=== PATIENT | male | born 1940 | race Caucasian/White ===

== ENCOUNTER 2019-11-13 18:05 | Outpatient (CLI) | payer MEDICARE, SELFPAY ==
[2019-11-13 19:01] LABS: Alanine Aminotransferase 11 U/L (0-41); Albumin Level 3.1 g/dL (3.5-5.2); Alkaline Phosphatase 87 IU/L (40-130); Anion Gap 13.6 (5-19); Aspartate Amino Transferase 21 U/L (0-40); Blood Urea Nitrogen 19 mg/dL (8-23); Carbon Dioxide 27 mmol/L (22-29); Chloride 99 mmol/L (98-107); Globulin 3.6 g/dL (1.3-4.6); Glucose 241 mg/dL (65-115); Osmolality Calculated 284 mOsm/kg (285-295); Potassium 4.6 mmol/L (3.5-5.1); Sodium 135 mmol/L (136-145); Total Bilirubin 1.1 mg/dL (0.15-1.2); Total Protein 6.7 g/dL (6.6-8.7)
== END 2019-11-13 18:06 | disposition home or self-care (01) ==
LOC: LAB 18:08
PROVIDERS: Family Provider Nurse Practitioner Family; Visit Provider Internal Medicine Gastroenterology
DX: K75.4 Autoimmune hepatitis (principal); K74.60 Unspecified cirrhosis of liver
CPT/HCPCS: 80053

== ENCOUNTER → 2022-12-24 10:55 | Day surgery (SDC) | payer MEDICARE, SELFPAY ==
[2022-12-23 10:20] VITALS: BMI 31.3
[2022-12-24 11:10] VITALS: BP 150/79; PULSE 98; RESP 20; TEMP 37; O2SAT 95
--- NOTE | 2022-12-24 11:27 | US_ITS ---
WS: [email or web address] ULTRASOUND-GUIDED PARACENTESIS CLINICAL INFORMATION: paracentises COMPARISON: None. Procedure Informed consent: The risks, benefits, and alternatives of the procedure were discussed with the van ent. Verbal and written consent was obtained. Timeout: A timeout was performed to confirm the correct patient, procedure, and site. Preparation: A suitable skin site was identified. The patient was prepped and draped in usual sterile fashion. Lidocaine 1% was used for local anesthesia. Catheter: 4 [place] One-step Yueh catheter. Side: LEFT lower quadrant. Fluid Volume: 7300 ml Color: Clear yellow DISPOSITION: Discarded safely. Complications: None. Patient disposition: Discharged from the department in stable condition. IMPRESSION: Uncomplicated ultrasound-guided paracentesis. Removal of 7300 cc
[2022-12-24] MEDS: albumin 25 G/100 ML BAG 60 G IV (12:22)
== END ==
PROVIDERS: Radiology Neuroradiology; Family Provider Nurse Practitioner Family; Visit Provider Registered Nurse
PROC: (CPT 49082; principal; 2022-12-24 12:30)
DX: K74.60 Unspecified cirrhosis of liver (principal)
CPT/HCPCS: 49083; 96365; P9046

== ENCOUNTER 2023-01-13 10:03 | Day surgery (SDC) | payer MEDICARE, SELFPAY ==
[2023-01-13 10:18] VITALS: BP 144/78; PULSE 84; RESP 16; TEMP 36.6; O2SAT 100
--- NOTE | 2023-01-13 10:42 | US_ITS ---
WS: [id number] ULTRASOUND-GUIDED THERAPEUTIC PARACENTESIS Procedure, risks, and complications have been explained to the patient. Consent is obtained. Utilizing aseptic technique and 1% buffered lidocaine, a small dermatome was made through which a 5 F rench Yueh catheter was inserted. Approximately 6900 ml of light yellow peritoneal fluid was obtained without difficulty. No complications encountered. IMPRESSION: Uncomplicated paracentesis yielding 6900 ml of peritoneal fluid.
[2023-01-13] MEDS: albumin 50 G/200 ML BAG 60 G IV (12:05)
== END 2023-01-13 12:45 | disposition home or self-care (01) ==
LOC: GILAB 10:04
PROVIDERS: Radiology Diagnostic Radiology; Visit Provider Registered Nurse
PROC: (CPT 49082; principal; 2023-01-13 11:00)
DX: R18.8 Other ascites (principal)
CPT/HCPCS: 49083; P9046

== ENCOUNTER 2023-01-25 09:49 | Day surgery (SDC) | payer MEDICARE, SELFPAY ==
[2023-01-25 10:03] VITALS: BP 141/70; PULSE 84; RESP 16; TEMP 36.5; O2SAT 96
--- NOTE | 2023-01-25 10:03 | US_ITS ---
WS: [email or web address] ULTRASOUND-GUIDED THERAPEUTIC PARACENTESIS Procedure, risks, and complications have been explained to the patient. Consent is obtained. Utilizing aseptic technique and 1% buffered lidocaine, a small dermatome was made through which a 5 F rench Yueh catheter was inserted. Approximately 3500 ml of clear peritoneal fluid was obtained witho ut difficulty. No complications encountered. IMPRESSION: Uncomplicated paracentesis yielding 3500 ml of peritoneal fluid.
[2023-01-25] MEDS: albumin 25 G/100 ML BAG 60 G IV (11:00)
== END 2023-01-25 11:36 | disposition home or self-care (01) ==
LOC: GILAB 09:50
PROVIDERS: Radiology Diagnostic Radiology; PCP Registered Nurse; Visit Provider Registered Nurse
PROC: (CPT 49082; principal; 2023-01-25 10:00)
DX: K74.60 Unspecified cirrhosis of liver (principal); R18.8 Other ascites
CPT/HCPCS: 49083; 96365; P9046

== ENCOUNTER 2023-02-01 08:53 | Day surgery (SDC) | payer MEDICARE, SELFPAY ==
--- NOTE | 2023-02-01 09:04 | US_ITS ---
WS: [email or web address] ULTRASOUND-GUIDED PARACENTESIS CLINICAL INFORMATION: Cirrhosis of liver with ascites COMPARISON: 01/25/2023 FINDINGS: Four-quadrant ultrasound performed. Insufficient fluid to safely perform paracentesis today. IMPRESSION: Insufficient fluid for paracentesis
[2023-02-01 09:09] VITALS: BP 143/81; PULSE 82; RESP 18; TEMP 36.2; O2SAT 98
== END 2023-02-01 09:52 | disposition home or self-care (01) ==
LOC: GILAB 08:53
PROVIDERS: Radiology Neuroradiology; PCP Registered Nurse; Visit Provider Registered Nurse
DX: K74.60 Unspecified cirrhosis of liver (principal); R18.8 Other ascites
CPT/HCPCS: 49083; 76705

== ENCOUNTER → 2023-02-08 10:00 | Day surgery (SDC) | payer MEDICARE, SELFPAY ==
[2023-02-08 09:01] VITALS: BP 149/65; PULSE 79; RESP 18; TEMP 36.1; O2SAT 100
--- NOTE | 2023-02-08 09:08 | US_ITS ---
WS: [email or web address] Abdominal ultrasound, limited. History: Evaluate for ascites. Comparison: None. All 4 quadrants are imaged by ultrasound to evaluate for ascites. Small amount of peritoneal fluid in all 4 quadrants. Insufficient for paracentesis. IMPRESSION: Small amount of ascites. Insufficient for paracentesis.
== END ==
PROVIDERS: Radiology Diagnostic Radiology; PCP Registered Nurse; Visit Provider Registered Nurse
DX: R18.8 Other ascites (principal)
CPT/HCPCS: 76705

== ENCOUNTER 2023-03-01 08:50 | Day surgery (SDC) | payer MEDICARE, SELFPAY ==
--- NOTE | 2023-03-01 08:58 | US_ITS ---
WS: [email or web address] ULTRASOUND-GUIDED PARACENTESIS CLINICAL INFORMATION: CIRRHOSIS OF LIVER WITH ASCITES COMPARISON: None. Procedure Informed consent: The risks, benefits, and alternatives of the procedure were discussed with the van ent. Verbal and written consent was obtained. Timeout: A timeout was performed to confirm the correct patient, procedure, and site. Preparation: A suitable skin site was identified. The patient was prepped and draped in usual sterile fashion. Lidocaine 1% was used for local anesthesia. Catheter: 4 [place] One[employer]step [employer] catheter. Side: LEFT lower quadrant. Fluid Volume: 7700 ml Color: Clear yellow DISPOSITION: Discarded safely. Complications: None. Patient disposition: Discharged from the department in stable condition. IMPRESSION: Uncomplicated ultrasound-guided paracentesis. Removal of 7700 cc
[2023-03-01 09:03] VITALS: BP 163/70; PULSE 84; RESP 18; TEMP 36.4; O2SAT 97
[2023-03-01] MEDS: albumin 25 G/100 ML BAG 60 G IV ×2 (10:20→10:42)
== END 2023-03-01 11:05 | disposition home or self-care (01) ==
LOC: GILAB 08:51
PROVIDERS: Radiology Neuroradiology; PCP Registered Nurse; Visit Provider Registered Nurse
PROC: (CPT 49082; principal; 2023-03-01 10:00)
DX: K74.60 Unspecified cirrhosis of liver (principal); R18.8 Other ascites
CPT/HCPCS: 49083; P9046

== ENCOUNTER 2023-03-15 09:04 | Day surgery (SDC) | payer MEDICARE, SELFPAY ==
--- NOTE | 2023-03-15 09:05 | US_ITS ---
WS: [email or web address] ULTRASOUND-GUIDED PARACENTESIS CLINICAL INFORMATION: cirrhosis of liver with ascites COMPARISON: None. Procedure Informed consent: The risks, benefits, and alternatives of the procedure were discussed with the van ent. Verbal and written consent was obtained. Timeout: A timeout was performed to confirm the correct patient, procedure, and site. Preparation: A suitable skin site was identified. The patient was prepped and draped in usual sterile fashion. Lidocaine 1% was used for local anesthesia. Catheter: 4 [place] One-step Yueh catheter. Side: LEFT lower quadrant. Fluid Volume: 8000 ml Color: Clear yellow DISPOSITION: Discarded safely. Complications: None. Patient disposition: Discharged from the department in stable condition. IMPRESSION: Uncomplicated ultrasound-guided paracentesis. Removal of 8000 cc
[2023-03-15 09:11] VITALS: BP 105/62; PULSE 88; RESP 16; TEMP 36.1; O2SAT 96; BMI 30.4
[2023-03-15] MEDS: albumin 50 G/200 ML VIAL IV (10:09)
== END 2023-03-15 10:54 | disposition home or self-care (01) ==
LOC: GILAB 09:05
PROVIDERS: Radiology Neuroradiology; PCP Registered Nurse; Visit Provider Family Medicine
PROC: (CPT 49082; principal; 2023-03-15 10:00)
DX: K74.60 Unspecified cirrhosis of liver (principal); R18.8 Other ascites
CPT/HCPCS: 49083; P9047

== ENCOUNTER 2023-03-24 09:45 | Day surgery (SDC) | payer MEDICARE, SELFPAY ==
--- NOTE | 2023-03-24 09:51 | US_ITS ---
WS: [email or web address] ULTRASOUND-GUIDED THERAPEUTIC PARACENTESIS Procedure, risks, and complications have been explained to the patient. Consent is obtained. Utilizing aseptic technique and 1% buffered lidocaine, a small dermatome was made through which a 5 F rench Yueh catheter was inserted. Approximately 8000 ml of clear peritoneal fluid was obtained witho ut difficulty. No complications encountered. IMPRESSION: Uncomplicated paracentesis yielding 8000 ml of peritoneal fluid.
[2023-03-24 10:06] VITALS: BP 133/71; PULSE 84; RESP 16; TEMP 36.6; O2SAT 98; BMI 28.8
[2023-03-24] MEDS: albumin 50 G/200 ML BAG 60 G IV (10:56)
== END 2023-03-24 12:02 | disposition home or self-care (01) ==
PROVIDERS: Radiology Diagnostic Radiology; PCP Registered Nurse; Visit Provider Registered Nurse
PROC: (CPT 49082; principal; 2023-03-24 11:00)
DX: K74.60 Unspecified cirrhosis of liver (principal); R18.8 Other ascites
CPT/HCPCS: 49083; 96365; P9046

== ENCOUNTER 2023-03-29 08:47 | Day surgery (SDC) | payer MEDICARE, SELFPAY ==
--- NOTE | 2023-03-29 08:58 | US_ITS ---
WS: [email or web address] ULTRASOUND-GUIDED 6000 PARACENTESIS Procedure, risks, and complications have been explained to the patient. Consent is obtained. Utilizing aseptic technique and 1% buffered lidocaine, a small dermatome was made through which a 5 F rench Yueh catheter was inserted. Approximately 6000 ml of clear peritoneal fluid was obtained witho ut difficulty. No complications encountered. IMPRESSION: Uncomplicated paracentesis yielding 6000 ml of peritoneal fluid.
[2023-03-29 09:00] VITALS: BP 138/89; PULSE 87; RESP 18; TEMP 36.5; O2SAT 99
[2023-03-29] MEDS: albumin 25 G/100 ML BAG 300 G IV ×2 (10:02→10:23)
== END 2023-03-29 10:46 | disposition home or self-care (01) ==
LOC: GILAB 08:48
PROVIDERS: Radiology Diagnostic Radiology; PCP Registered Nurse; Visit Provider Family Medicine
PROC: (CPT 49082; principal; 2023-03-29 10:00)
DX: R18.8 Other ascites (principal)
CPT/HCPCS: 49083; 96365; P9046

== ENCOUNTER 2023-04-06 09:09 | Day surgery (SDC) | payer MEDICARE, SELFPAY ==
--- NOTE | 2023-04-06 09:11 | US_ITS ---
WS: [email or web address] ULTRASOUND-GUIDED PARACENTESIS CLINICAL INFORMATION: ascites COMPARISON: None. Procedure Informed consent: The risks, benefits, and alternatives of the procedure were discussed with the van ent. Verbal and written consent was obtained. Timeout: A timeout was performed to confirm the correct patient, procedure, and site. Preparation: A suitable skin site was identified. The patient was prepped and draped in usual sterile fashion. Lidocaine 1% was used for local anesthesia. Catheter: 4 English One-step Yueh catheter. Side: LEFT lower quadrant. Fluid Volume: 4000 ml Color: Clear yellow DISPOSITION: Discarded safely. Complications: None. Patient disposition: Discharged from the department in stable condition. IMPRESSION: Uncomplicated ultrasound-guided paracentesis. Removal of 4000 cc
[2023-04-06 09:20] VITALS: BP 116/77; PULSE 78; RESP 18; TEMP 36.4; O2SAT 98
[2023-04-06] MEDS: albumin 25 G/100 ML BAG 350 G IV (10:26)
== END 2023-04-06 10:45 | disposition home or self-care (01) ==
PROVIDERS: Radiology Neuroradiology; PCP Registered Nurse; Visit Provider Family Medicine
PROC: (CPT 49082; principal; 2023-04-06 10:00)
DX: R18.8 Other ascites (principal)
CPT/HCPCS: 49083; 96365; P9046

== ENCOUNTER 2023-04-13 08:47 | Day surgery (SDC) | payer MEDICARE, SELFPAY ==
--- NOTE | 2023-04-13 08:54 | US_ITS ---
WS: [email or web address] ULTRASOUND-GUIDED PARACENTESIS CLINICAL INFORMATION: Ascities COMPARISON: None. Procedure Informed consent: The risks, benefits, and alternatives of the procedure were discussed with the van ent. Verbal and written consent was obtained. Timeout: A timeout was performed to confirm the correct patient, procedure, and site. Preparation: A suitable skin site was identified. The patient was prepped and draped in usual sterile fashion. Lidocaine 1% was used for local anesthesia. Catheter: 4 [place] One-step Yueh catheter. Side: LEFT lower quadrant. Fluid Volume: 4600 ml Color: Clear yellow DISPOSITION: Discarded safely. Complications: None. Patient disposition: Discharged from the department in stable condition. IMPRESSION: Uncomplicated ultrasound-guided paracentesis. Removal of 4600 cc
[2023-04-13 09:01] VITALS: BP 121/70; PULSE 94; RESP 16; TEMP 36.3; O2SAT 100; BMI 28.8
[2023-04-13] MEDS: albumin 25 G/100 ML BAG 60 G IV (10:01)
== END 2023-04-13 10:21 | disposition home or self-care (01) ==
PROVIDERS: Radiology Neuroradiology; PCP Registered Nurse; Visit Provider Registered Nurse
PROC: (CPT 49082; principal; 2023-04-13 10:00)
DX: R18.8 Other ascites (principal)
CPT/HCPCS: 49083; 96365; P9046

== ENCOUNTER 2023-04-22 09:35 | Day surgery (SDC) | payer MEDICARE, SELFPAY ==
--- NOTE | 2023-04-22 09:51 | US_ITS ---
WS: [email or web address] ULTRASOUND-GUIDED THERAPEUTIC PARACENTESIS Procedure, risks, and complications have been explained to the patient. Consent is obtained. Utilizing aseptic technique and 1% buffered lidocaine, a small dermatome was made through which a 5 F rench Yueh catheter was inserted. Approximately 5700 ml of clear peritoneal fluid was obtained witho ut difficulty. No complications encountered. IMPRESSION: Uncomplicated paracentesis yielding 5700 ml of peritoneal fluid.
[2023-04-22 10:02] VITALS: BP 101/66; PULSE 89; RESP 18; TEMP 36.2; O2SAT 100
[2023-04-22] MEDS: albumin 25 G/100 ML BAG 500 G IV (11:54)
== END 2023-04-22 12:18 | disposition home or self-care (01) ==
PROVIDERS: Radiology Diagnostic Radiology; PCP Registered Nurse; Visit Provider Family Medicine
PROC: (CPT 49082; principal; 2023-04-22 10:30)
DX: K74.60 Unspecified cirrhosis of liver (principal); R18.8 Other ascites
CPT/HCPCS: 49083; 96365; P9046